=== PATIENT | male | born 1965 | race Caucasian/White ===

== ENCOUNTER 2020-09-26 12:37 | Emergency (ER) | payer BC, SELFPAY ==
[2020-09-26 12:38] VITALS: BP 210/109; PULSE 74; RESP 16; TEMP 36.8; O2SAT 98; BMI 25.7
--- NOTE | 2020-09-26 13:36 | XR_ITS ---
PROCEDURE: XR CHEST PORTABLE CLINICAL HISTORY: cough COMPARISON: No exams were available for comparison FINDINGS: The cardiomediastinal silhouette and pulmonary vascularity are within normal limits. The lungs are clear without infiltrates, suspicious nodules, or pleural effusions. No acute bony abnormalities. IMPRESSION: No acute findings. Dictated by: Sukhjinder Miranda MD 09/26/2020 15:42 Sukhjinder Miranda MD in [facility] 09/26/2020 15:42
--- NOTE | 2020-09-26 13:49 | ECG_ITS ---
APPROVED REPORT Exam: Resting ECG HR:48 bpm ECG Measurements Heart Rate 48 AXES AK 160 P 13 QRSd 86 QRS -7 QT 452 T 33 QTc 403 Conclusion Marked sinus bradycardia Voltage criteria for left ventricular hypertrophy Abnormal ECG Electronically signed by : Jesús Hart, 09/26/2020 14:58:55
[2020-09-26 13:58] LABS: Basophils # 0.1 K/mm3 (0-0.2); Basophils % 0.6 % (0.1-2.0); Eosinophils # 0.1 K/mm3 (0.0-0.4); Eosinophils % 1.3 % (0.1-12.0); Hematocrit 43.1 % (42.0-52.0); Hemoglobin 14.7 g/dL (14.1-18.0); Lymphocytes # 2.9 K/mm3 (0.7-4.5); Lymphocytes % 36.2 % (10-50); Mean Corpuscular Hemoglobin 30.1 pg (27.0-31.2); Mean Corpuscular Volume 88.5 fl (80-94); Mean Platelet Volume 8.2 fl (7.4-10.4); Monocytes # 0.4 K/mm3 (0.1-1.0); Monocytes % 5.4 % (1.7-9.3); Neutrophils # 4.5 K/mm3 (1.8-7.8); Neutrophils % 56.5 % (37.0-80.0); Platelet Count 269 K/mm3 (142-424); Red Blood Count 4.88 M/mm3 (4.60-6.20)
[2020-09-26 14:01] LABS: Chloride 106 mmol/L (98-107)
[2020-09-26 14:02] LABS: Potassium 4.2 mmoL/L (3.5-5.1); Sodium 138 mmol/L (136-145)
[2020-09-26 14:04] LABS: Alanine Aminotransferase 22 U/L (12-78); Aspartate Amino Transferase 31 U/L (17-59); Bilirubin,Total 0.5 mg/dl (0.2-1.3); Blood Urea Nitrogen 17 mg/dl (9-20); Estimated Glomerular Filt Rate 70 ml/min (>60); GFR (African American) 85 ML/MIN (>60)
[2020-09-26 14:05] LABS: Albumin Level 4.3 g/dl (3.5-5.0); Albumin/Globulin Ratio 1.5 (1.1-1.8); Alkaline Phosphatase 69 U/L (38-126); Anion Gap 10.2 mEq/L (5-15); Calcium 9.5 mg/dl (8.4-10.2); Carbon Dioxide 26 mmol/L (22.0-30.0); Globulin 2.8 g/dL (1.3-3.2); Glucose 114 mg/dl (74-100); Total Protein,Serum 7.1 g/dl (6.3-8.2)
[2020-09-26 14:15] LABS: NT Pro Brain Natriuretic Pep. 177 pg/mL (0-125)
[2020-09-26 14:18] LABS: Troponin I < 0.01 ng/ml (0.00-0.034)
[2020-09-26 14:36] LABS: Thyroid Stimulating Hormone 5.68 uIU/mL (0.465-4.68)
--- NOTE | 2020-09-26 14:39 | CT_ITS ---
PROCEDURE: CT HEAD/BRAIN WO CON CLINICAL INDICATION: weakness Headache, hypertension, generalized weakness COMPARISON: No exams were available for comparison TECHNIQUE: Axial images obtained. All CT scans at the facility use one or more dose reduction, viz: automated exposure control, ma/kV adjustment per patient size (including targeted exams where dose is matched to indication, i.e. head), or iterative reconstruction technique. FINDINGS: No midline shift, mass effect, intracranial hemorrhage, hydrocephalus, or extra-axial fluid collection is evident. Asymmetric hypodensity is noted in the left frontal and parietal periventricular region consistent with ischemic gliotic changes microvascular disease. The calvarium has an unremarkable appearance. No mastoid effusion. Mild mucosal thickening ethmoid sinuses.. IMPRESSION: No acute intracranial finding Dictated by: Sukhjinder Miranda MD 09/26/2020 16:06 Sukhjinder Miranda MD in [facility] 09/26/2020 16:06
--- NOTE | 2020-09-26 14:58 | [facility].EDGENADL ---
ED Disposition Clinical Impression: Headache Qualifiers: Headache type: tension-type Headache chronicity pattern: acute headache Intractability: not intractable Qualified Code(s): G44.209 - Tension-type headache, unspecified, not intractable Hypertension Qualifiers: Hypertension type: essential hypertension Qualified Code(s): I10 - Essential (primary) hypertension Disposition: Home, Self-Care Condition on Discharge: Good Instructions: Hypertension (Alternative Therapy) Referrals: PCP,No [Primary Care Provider] - Ezequiel Dodson MD [Staff Physician] - - Critical Care Critical Care Time: No Attestation: On 09/26/20, the high probability of a clinically significant, sudden or life threatening deterioration of the following system(s) required my full and direct attention, intervention and personal management. The time I documented below is in addition to time spent performing reported procedures but includes the following listed in this critical care notation. Medical Decision Making - Medical Records Medical records reviewed: Yes: I reviewed the patient's medical records. - [place] Inquiry Pt receiving controlled substance: No Vital Signs: 09/26/20 12:38 Temperature 98.2 F Temperature Source Oral Pulse Rate [Right] 74 Respiratory Rate 16 Blood Pressure [Right Arm] 210/109 H Blood Pressure Mean [Right Arm] 142 Blood Pressure Source [Right Arm] Automatic Cuff Blood Pressure Position [Right Arm] Sitting 02 Sat by Pulse Oximetry 98 Oxygen Delivery Method Room Air - Lab Data Lab Results 09/26/20 13:44: WBC 8.0, RBC 4.88, Hgb 14.7, Hct 43.1, MCV 88.5, MCH 30.1, MCHC 34.0, RDW 13.0, Plt Count 269, MPV 8.2, Neut % (Auto) 56.5, Lymph % (Auto) 36.2, [place] % (Auto) 5.4, Eos % (Auto) 1.3, Baso % (Auto) 0.6, Neut # (Auto) 4.5, Lymph # (Auto) 2.9, [place] # (Auto) 0.4, Eos # (Auto) 0.1, Baso # (Auto) 0.1 09/26/20 13:44: Sodium 138, Potassium 4.2, Chloride 106, Carbon Dioxide 26, Anion Gap 10.2, BUN 17, Creatinine 1.10, Estimated GFR 70, Est GFR ( Amer) 85, Glucose 114 H, Calcium 9.5, Total Bilirubin 0.5, AST 31, ALT 22, Alkaline Phosphatase 69, Troponin I < 0.01, NT-Pro-B Natriuret Pep 177 H, Total Protein 7.1, Albumin 4.3, Globulin 2.8, Albumin/Globulin Ratio 1.5, TSH 5.68 H Result diagrams: 09/26/20 13:44 09/26/20 13:44 Orders (Tests/Meds): ED MEDICATIONS Discontinued Medications Generic Name Dose Route Start Last Admin Trade Name Freq PRN Reason Stop Dose Admin Hydralazine HCl 10 mg 09/26/20 13:37 09/26/20 13:59 Hydralazine 20mg/Ml Vial IV 09/26/20 13:38 10 mg ONCE ONE Administration ORDERS Category Date Time Status Troponin I Q3H Lab 09/26/20 16:45 Ordered Troponin I Q3H Lab 09/26/20 19:45 Ordered - Radiology Data #1 Image(s): Chest Image Reviewed: Yes I reviewed the patient's radiology results, Yes I reviewed the patient's radiology image, Yes I discussed the image results w/the radiologist Preliminary Findings: Normal/NAD, No Fracture Seen - CT Data CT Scan: Head Time Received: 16:[address] Reviewed: Yes: I have reviewed the patient's CT results, I have viewed the radiologist's interpretation Preliminary Findings: Normal/NAD - ECG Data Tracing #1 I reviewed this ECG and interpreted as documented below: ECG initial impression date: 09/26/20 ECG initial impression time: 13:51 Arrhythmias present: sinus alida - Reevaluation(s) Time: 16:22 Reevaluation #1: On reevaluation, the patient is feeling much better. Repeat neurologic exam is normal. Patient's heart rate and blood pressure both improved. Patient does need to follow-up and establish primary care physician. Patient was given strict return precautions. Verbalized understanding. Medical Decision Narrative: This is a 55-year-old male presented to the emergency department with lightheadedness. Patient was significantly hypertensive on initial presentation. Patient will be treated symptoma
[2020-09-26 17:09] VITALS: BP 137/74; PULSE 54; RESP 16; TEMP 36.8; O2SAT 98
== END 2020-09-26 17:10 | disposition home or self-care (01) ==
PROVIDERS: Emergency Provider Emergency Medicine
DX: G44.209 Tension-type headache, unspecified, not intractable (principal); I10 Essential (primary) hypertension; F17.290 Nicotine dependence, other tobacco product, uncomplicated
CPT/HCPCS: 70450; 71045; 80053; 83880; 84443; 84484; 85025; 93005; 99283

== ENCOUNTER → 2021-06-19 13:33 | Outpatient (CLI) | payer BC, SELFPAY | PROVIDERS: PCP Internal Medicine; Visit Provider Nurse Practitioner | DX: U07.1 COVID-19 (principal) | CPT/HCPCS: C9803; U0003; U0005 ==